=== PATIENT | female | born 1945 | race Caucasian/White ===

== ENCOUNTER 2019-08-02 08:05 | Emergency (ER) | payer MEDICARE, BC ==
[~2019-08-02] VITALS: Ht 162.6 cm; Wt 77.1 kg
[2019-08-02] MEDS ORDERED: FLUOXETINE HCL40 MG PO (08:13)
[2019-08-02] MEDS ORDERED: OMEPRAZOLE40 MG PO (08:13)
[2019-08-02] MEDS ORDERED: BUPROPION XL300 MG PO (08:14)
[2019-08-02] MEDS ORDERED: VITAMIN D32000 UNI2 PO (08:14)
[2019-08-02] MEDS ORDERED: SIMVASTATIN80 MG PO (08:14)
[2019-08-02] MEDS ORDERED: ASA81BEC PO (08:15)
[2019-08-02] MEDS ORDERED: COQ-1030 MG PO (08:15)
[2019-08-02 08:26] LABS: ABSOLUTE EOSINOPHILS 0.1 thou/uL (0.0-0.7); ABSOLUTE LYMPHOCYTES 2.5 thou/uL (0.8-5.3); EOSINOPHILS 0.7 %; MPV 8.8 fl. (7.2-11.1)
[2019-08-02 08:28] LABS: ABSOLUTE BASOPHILS 0.1 thou/uL (0.0-0.2); ABSOLUTE MONOCYTES 0.9 thou/uL (0.0-1.2); ABSOLUTE NEUTROPHILS 13.8 thou/uL (1.6-8.1); BASOPHILS 0.8 %; HEMATOCRIT 39.8 % (37.0-47.0); HEMOGLOBIN 13.5 gm/dL (12.0-15.0); LYMPHOCYTES 14.5 %; MCH 31.7 pg (26.0-34.0); MCHC 33.9 g/dL (28.0-37.0); MCV 93.4 fL (80.0-100.0); MONOCYTES 5.4 %; NUCLEATED RBCS 0 /100WBC; PLATELET COUNT* 312 thou/uL (150-400); POLYS 78.6 %; RBC 4.26 mil/uL (4.20-5.00); RDW-CV 13.9 % (10.5-14.5); WBC 17.5 thou/uL (4.0-11.0)
[2019-08-02 08:38] LABS: CALCIUM 8.8 mg/dL (8.5-10.1); CREATININE 0.7 mg/dL (0.6-1.3); POTASSIUM 3.9 mmol/L (3.5-5.1)
[2019-08-02 08:40] LABS: APTT 23.8 Seconds (25.0-31.3); PROTIME 9.8 Seconds (9.20-11.50)
[2019-08-02 08:52] LABS: ALBUMIN 3.6 g/dL (3.4-5.0); CK-MB MASS 1.1 ng/mL (<0.5-3.6); MAGNESIUM 1.6 mg/dL (1.8-2.4); TOTAL BILIRUBIN 0.4 mg/dL (<0.1-1.0); TOTAL PROTEIN 7.2 g/dL (6.4-8.2)
[2019-08-02] MEDS ORDERED: LEVAQUIN 500 M500 MG PO (10:20)
[2019-08-02] MEDS ORDERED: NORCO 5-325 TA1 EAC1 PO (10:30)
[2019-08-02 10:59] VITALS: BP 104/75
--- NOTE | 2019-08-03 10:12 | EKG ---
[place] [address] ELECTROCARDIOGRAM REPORT Name: HEATHER PÉREZ Room: [facility]#: [id number] Admission: 08/02/19 Attend Phys: Discharge: 08/02/19 Date of : 47 Report #: [id number] THIS REPORT FOR: //name// [facility] ED Test Date: 2019-08-02 Test Time: 08:07:13 Pat Name: HEATHER PÉREZ Department: Room: Gender: F Resin Maker: : [id number] Requested By: Nolberto Sanz Order Number: [id number] MD: Man Walker Measurements Intervals [place] Rate: 91 P: 71 MS: 138 QRS: 18 QRSD: 98 T: 27 QT: 356 QTc: 439 Interpretive Statements Sinus rhythm No previous ECG available for comparison Electronically Signed On 08-03-2019 10:12:10 [employer] by Man Walker [email or web address] <ELECTRONICALLY SIGNED> By: Man Walker MD, [facility] 08/03/19 [id number] Man Walker MD, FACC /EPI
== END 2019-08-02 11:07 | disposition home or self-care (01) ==
LOC: M.ERS 08:05
PROVIDERS: Family Medicine
DX: J18.9 Pneumonia, unspecified organism (principal); R07.89 Other chest pain; K21.9 Gastro-esophageal reflux disease without esophagitis; F32.9 Major depressive disorder, single episode, unspecified; E78.5 Hyperlipidemia, unspecified; J44.9 Chronic obstructive pulmonary disease, unspecified; Z98.890 Other specified postprocedural states; Z90.710 Acquired absence of both cervix and uterus; Z88.5 Allergy status to narcotic agent; Z88.8 Allergy status to other drugs, medicaments and biological substances